=== PATIENT | male | born 1965 | race Caucasian/White ===

== ENCOUNTER 2021-04-11 08:18 | Inpatient (IN) ==
--- NOTE | 2021-03-11 14:33 | PAT Medication Instructions ---
Medication Instructions Date of Service March 11, 2021 Home Medications alfuzosin 10 mg PO HS allopurinol 100 mg PO HS alprazolam [Xanax] 2 mg PO BID diltiazem HCl 240 mg PO HS metoprolol succinate 50 mg PO HS Take morning of surgery With a small sip of water, OTHERWISE NOTHING TO EAT OR DRINK AFTER MIDNIGHT: alprazolam [Xanax] 2 mg PO BID Take evening before surgery alfuzosin 10 mg PO HS allopurinol 100 mg PO HS alprazolam [Xanax] 2 mg PO BID diltiazem HCl 240 mg PO HS metoprolol succinate 50 mg PO HS Other Notes If you have any questions please call us at [phone] or [phone] or [phone] or [phone]
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
[2021-03-12 14:06] LABS: Basophils # (auto) 0.01 K/uL (0-0.2); Basophils % (auto) 0.1 %; Eosinophils # (auto) 0.04 K/uL (0-0.5); Eosinophils % (auto) 0.5 %; Hematocrit (blood only) 43.8 % (42-52); Hemoglobin 15.9 g/dL (14.0-18.0); Immature Granulocytes # (auto) 0.04 K/uL (0.00-0.02); Immature Granulocytes % (auto) 0.5 %; Lymphocytes # (auto) 1.63 K/uL (1.2-3.4); Lymphocytes % (auto) 18.4 %; Mean Corpuscular Hemoglobin 32.5 pg (25-34); Mean Corpuscular Hgb Conc 36.3 g/dL (32-36); Mean Corpuscular Volume 89.6 fL (80-100); Mean Platelet Volume 9.5 fL (7.4-10.4); Monocytes # (auto) 0.74 K/uL (0.11-0.59); Monocytes % (auto) 8.4 %; Neutrophils % (auto) 72.1 %; Platelet Count 277 K/uL (130-400); RDW Standard Deviation 46.1 fL (36.4-46.3); Red Blood Count 4.89 M/uL (4.7-6.1); White Blood Count 8.86 K/uL (4.8-10.8)
--- NOTE | 2021-03-12 14:07 | XRay Report ---
TWO VIEW CHEST CLINICAL HISTORY: Spinal stenosis. Preoperative examination. Hypertension. FINDINGS: PA and lateral chest radiographs are compared to study dated 08/05/2012. The cardiomediastina l silhouette is unremarkable. There is mild bibasilar scarring/atelectasis. No airspace consolidation or pleural effusion is identified. An 8 mm nodular density projecting over the left lower chest is u nchanged from 2012. There is no pneumothorax. The bony thorax appears intact. Fusion hardware is note d in the lower cervical spine. Surgical clips are seen in the upper abdomen on the lateral view. IMPRESSION: 1. No active disease in the chest. 2. An 8 mm nodular density projecting over the left lower chest is unchanged dating back to 2011. ACT 112: Negative or not required by law. Electronically signed by: John Hearn M.D. 03/12/2021 2:06 PM
[2021-03-12 14:21] LABS: Partial Thromboplastin Time 26.8 Seconds (21.0-31.0); Prothrombin Time 9.8 Seconds (9.0-12.0)
[2021-03-12 14:56] LABS: Appearance Urine Clear (Clear); Bilirubin Urine Negative (Negative); Blood Urine Negative (Negative); Color Urine Dark Yellow; Glucose Urine UA Negative (Negative); Ketones Urine Negative (Negative); Leukocyte Esterase Urine Negative (Negative); Nitrite Urine Negative (Negative); Protein Urine Negative (Negative); Specific Gravity Urine 1.021 (1.000-1.030); Urobilinogen Urine Negative (Negative)
[2021-03-12 16:25] LABS: BUN Creatinine Ratio 20.3 (10-20); Calcium 9.4 mg/dl (8.5-10.1); Creatinine Clr Calc Pharmacy 116.6 ml/min; Est GFR (African American) 95.9; Est GFR (Non-African American) 82.8; Potassium 4.1 mmol/L (3.5-5.1)
[~2021-04-11 08:18] MED LIST: ACETAMINOPHEN 500 MG TAB PO SCH; CeleBREX 200 MG CAP PO SCH; GABAPENTIN 600 MG DOSE PO SCH; LR 15ML/HR IV SCH
--- NOTE | 2021-04-11 09:18 | History & Physical Bridge Note ---
Date of Service April 11, 2021 History & Physical Bridge Note I have examined the patient, reviewed the History & Physical and in the interval since the performance of the History & Physical I have noted the following changes of clinical significance: no changes noted
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
[2021-04-11] MEDS ORDERED: PROPOFOL IV EMULSION 10 MG/ML 20 ML VIAL IV ONE (09:35)
[2021-04-11] MEDS ORDERED: NEOSTIGMINE METHYLSULFATE 1 MG/ML 10ML VIAL ONE (09:35)
[2021-04-11] MEDS ORDERED: GLYCOPYRROLATE 0.2 MG/ML VIAL ONE (09:35)
[2021-04-11] MEDS ORDERED: ROCURONIUM BROMIDE 10 MG/ML 5 ML VIAL IV ONE (09:35)
[2021-04-11] MEDS ORDERED: SUCCINYLCHOLINE CHLORIDE 20 MG/ML 10 ML VIAL IV ONE (09:35)
[2021-04-11] MEDS ORDERED: MIDAZOLAM HCL 1 MG/ML 2ML VIAL ONE (09:35)
[2021-04-11] MEDS ORDERED: DEXAMETHASONE SOD INJ 4 MG/ML VIAL ONE (09:35)
[2021-04-11] MEDS ORDERED: ONDANSETRON INJ 2 MG/ML 2 ML VIAL ONE (09:35)
[2021-04-11] MEDS ORDERED: fentaNYL citrate 100 MCG/2 ML VIAL ONE ×2 (09:35→11:48)
[2021-04-11] MEDS ORDERED: HYDROmorphone INJ 2 MG/ML SYR/VIAL ONE (09:36)
[2021-04-11] MEDS ORDERED: FLOSEAL HEMOSTATIC MATRIX 10ML TOP ONE (11:19)
--- NOTE | 2021-04-11 11:23 | Operative Report ---
Post Operative Report Pre & Post Diagnosis Operation Date: 04/11/21 10:05 Pre-Op Diagnosis: Spinal Stenosis, cervical region Post-Op Diagnosis: Spinal Stenosis, cervical region I identified the patient and participated in the time-out.: Yes Procedure Operation Date: 04/11/21 10:05 Actual Procedures #1 anterior cervical discectomy with bilateral foraminotomies C6-C7. #2 anterior cervical arthrodesis C6-C7. #3 placement of 10 mm coalition filled with I factor C6-C7. Surgeon Peter Gibson, Angle Shear Operator Maddi Sims Estimated Blood Loss 10 Findings See Below The patient is 6 feet 1 inches tall weighing over 129 kg with a BMI in excess of 37. The patient's body habitus did contribute to significant technical difficulty with positioning and exposure adding at least 50% increase to the operative time. Specimens None Indications This is a 55-year-old male who presents with chronic persistent radiculopathy and is here for the above-mentioned procedure. Description of Procedure Patient was met with identified informed consent obtained. Patient was then taken to the operative suite underwent intubation placed in spine position Reji table the head Farrell head paper tester. All bony prominences well-padded eyes inspected to ensure no external pressure placed upon. This point the anterior cervical spine was prepped and draped in a sterile fashion. Sharp dissection with the assistance of Bovie cautery was performed down to expose the anterior cervical spine at C6-C7. Then performed a complete discectomy out to the uncovertebral joints bilaterally including removal of all posterior annular fibers and longitudinal ligament and bilateral foraminotomies. We had considered possible hardware removal but we had excellent exposure this level and felt that a stand-alone interbody cage would work vertically with his surface area and bone quality. Subsequently a 10 mm coalition interbody bony spacer filled with I factor was tapped in position and 20 mm screws placed to lock it in place. The incision was then copiously irrigated explored to ensure no damage to surrounding structures remaining bleeding. A 10 round ROD drain was inserted. The incision was then closed with 2 Vicryl in a fashion of 4 Monocryl for final skin closure. Steri-Strip sterile dressings placed. Patient waken taken to PACU stable condition. Please note spinal cord monitoring was utilized at the procedure no changes noted. Lastly Maddi Sims was present at the entire surgery and while the patient existing complex portions of the surgery and final skin closure. I attest to the content of the Intraoperative Record and any orders documented therein. Any exceptions are noted below.
--- NOTE | 2021-04-11 11:42 | Fluoroscopy Report ---
FL cervical 2-3V HISTORY: 55 years-old Male ACDF C6-C7 HW REMOVAL C4-C6 COMPARISON: Cervical spine radiographs 08/24/2012 TECHNIQUE: 3 spot fluoroscopic images of the cervical spine were obtained utilizing 28.4 seconds fluo roscopy time FINDINGS: Limited lateral view secondary to overlying soft tissue. Anterior plate and screw fusion with discect rick changes noted at what appears to be the C4-C6 levels. Anterior fusion hardware is also noted at w hat appears to be the C7 level. Note that the images were submitted after the surgery was completed. IMPRESSION: Fluoroscopic assistance as above. ACT 112: Negative or not required by law. The above report was generated using voice recognition software. It may contain grammatical, syntax o r spelling errors. Electronically signed by: Yony Hwang M.D. 04/11/2021 11:40 AM
[2021-04-11] MEDS ORDERED: ONDANSETRON INJ 2 MG/ML 2 ML VIAL IV PRN ×2 (11:55→13:03)
[2021-04-11] MEDS ORDERED: PROMETHAZINE HCL 12.5 MG in SODIUM CHLORIDE 0.9% 50 ML IV PRN ×2 (11:55→13:03)
[2021-04-11] MEDS ORDERED: ATROPINE SULFATE 0.1 MG/ML 10ML SYR IV PRN (11:55)
[2021-04-11] MEDS ORDERED: ePHEDrine sulfate 50 MG/ML AMP IV PRN (11:55)
[2021-04-11] MEDS ORDERED: fentaNYL citrate 100 MCG/2 ML VIAL IV PRN (11:55)
[2021-04-11] MEDS: HYDROmorphone INJ 2 MG/ML SYR/VIAL IV PRN ×3 (12:15→12:32)
--- NOTE | 2021-04-11 12:37 | Anesthesiology Progress Note ---
Date of Service April 11, 2021 Anesthesia Post Procedure Vital Signs Vital Signs: Temp Pulse Resp BP BP Pulse Ox 04/11/21 12:35 73 10 L 124/73 93 04/11/21 12:25 76 10 L 140/79 94 04/11/21 12:15 80 6 L 146/84 H 95 04/11/21 12:05 70 6 L 145/83 H 96 04/11/21 11:55 69 14 139/84 91 04/11/21 11:45 76 14 143/75 H 96 04/11/21 11:37 36.2 C L 78 14 140/73 97 04/11/21 08:37 36.7 C 79 18 131/86 98 Pain Intensity Neck: Pain Intensity: 5 Transfer of Care Handoff Completed per policy Notes Mental Status: alert / awake / arousable and participated in evaluation Patient Amnestic to Procedure: Yes Nausea / Vomiting: adequately controlled Pain: adequately controlled Airway Patency, RR, SpO2: stable & adequate BP & HR: stable & adequate Hydration State: stable & adequate Anesthetic Complications: no major complications apparent and Pt Satisfied with anesthetic care
[2021-04-11] MEDS ORDERED: FAMOTIDINE 20 MG TAB PO PRN (13:03)
[2021-04-11] MEDS ORDERED: diphenhydrAMINE Capsule 25 MG CAP PO PRN (13:03)
[2021-04-11] MEDS ORDERED: SOD PHOSPHATE/SOD BIPHOSPHATE ENEMA 132 ML BTL PR PRN (13:03)
[2021-04-11] MEDS ORDERED: HYDROmorphone INJ 1 MG/ML SYRINGE IV PRN (13:03)
[2021-04-11] MEDS ORDERED: LORazepam 0.5 MG TAB PO PRN (13:03)
[2021-04-11] MEDS ORDERED: ONDANSETRON 4 MG OD TAB PO PRN (13:03)
[2021-04-11] MEDS ORDERED: NALOXONE HCL 0.4 MG/1 ML VIAL/CARP IV PRN (13:03)
[2021-04-11] MEDS ORDERED: DO NOT ADMINISTER PNEUMOCOCCAL VACCINE PRN (13:03)
[2021-04-11] MEDS ORDERED: ACETAMINOPHEN 500 MG TAB PO PRN (13:03)
[2021-04-11] MEDS ORDERED: LORazepam 0.5 MG/1 ML VIAL IV PRN (13:03)
[2021-04-11] MEDS ORDERED: MAGNESIUM HYDROXIDE SUSP 30 ML UDC PO PRN (13:03)
[2021-04-11] MEDS ORDERED: traMADol HCL 50 MG TABLET PO PRN (13:03)
[2021-04-11] MEDS ORDERED: hydrOXYzine HCl 25 MG TAB PO PRN (13:03)
[2021-04-11] MEDS ORDERED: ALUMINUM/MAGNESIUM SUSP 30 ML UDC PO PRN (13:03)
[2021-04-11] MEDS ORDERED: ACETAMINOPHEN 1,000 MG/100 ML VIAL IV PRN (13:03)
[2021-04-11] MEDS ORDERED: METOCLOPRAMIDE HCL INJ 5 MG/ML 2 ML VIAL IV PRN (13:03)
[2021-04-11] MEDS ORDERED: DO NOT ADMINISTER FLU VACCINE PRN (13:03)
[2021-04-11] MEDS ORDERED: RACEPINEPHRINE 2.25% NEBU SOLN 0.5 ML VIAL INH PRN (13:03)
[2021-04-11] MEDS ORDERED: HYDROmorphone INJ 0.5 MG/0.5 ML SYR IV PRN (13:03)
[2021-04-11] MEDS ORDERED: dexAMETHasone 8 MG in SYRINGE 0 ML IV PRN (13:03)
[2021-04-11] MEDS: ceFAZolin 2000MG 2,000 MG/15 ML SYR IV SCH (17:31)
[2021-04-11] MEDS: LACTATED RINGER'S 1,000 ML IV SCH ×2 (19:26→21:06)
[2021-04-11] MEDS: HYDROCODONE/ACETAMOPHEN 5/325MG TAB PO PRN (20:52)
[2021-04-11] MEDS ORDERED: allopurinoL 100 MG TAB PO SCH (21:00)
[2021-04-11] MEDS ORDERED: dilTIAZem HCL 240 MG CAPCR PO SCH (21:00)
[2021-04-11] MEDS ORDERED: DOCUSATE SODIUM/SENNA 50/8.6MG TAB PO SCH (21:00)
[2021-04-11] MEDS ORDERED: METOPROLOL SUCC 50MG EXT REL TAB PO SCH (21:00)
[2021-04-11] MEDS ORDERED: ALFUZOSIN HCL 10 MG TAB PO SCH (21:00)
[2021-04-11] MEDS: ALPRAZolam 0.5 MG TABLET PO SCH (22:25)
[2021-04-12] MEDS: ceFAZolin 2000MG 2,000 MG/15 ML SYR IV SCH (02:39)
[2021-04-12] MEDS: HYDROCODONE/ACETAMOPHEN 5/325MG TAB PO PRN ×2 (02:49→11:16)
[2021-04-12] MEDS: LACTATED RINGER'S 1,000 ML IV SCH (03:49)
[2021-04-12 05:44] LABS: Hemoglobin 15.7 g/dL (14.0-18.0); Immature Granulocytes # (auto) 0.02 K/uL (0.00-0.02); Immature Granulocytes % (auto) 0.2 %; Lymphocytes # (auto) 0.93 K/uL (1.2-3.4); Lymphocytes % (auto) 8.2 %; Mean Corpuscular Hemoglobin 32.2 pg (25-34); Mean Corpuscular Hgb Conc 34.9 g/dL (32-36); Mean Corpuscular Volume 92.4 fL (80-100); Mean Platelet Volume 9.4 fL (7.4-10.4); Monocytes # (auto) 0.86 K/uL (0.11-0.59); Monocytes % (auto) 7.5 %; Neutrophils # (auto) 9.59 K/uL (1.4-6.5); Neutrophils % (auto) 84.1 %; Platelet Count 293 K/uL (130-400); RDW Coefficient of Variation 12.9 % (11.5-14.5); RDW Standard Deviation 43.5 fL (36.4-46.3); Red Blood Count 4.87 M/uL (4.7-6.1)
[2021-04-12] MEDS: POLYETHYLENE (MIRALAX) 17 GM PACK PO SCH ×2 (05:45→11:17)
[2021-04-12 06:09] LABS: Calcium 9.1 mg/dl (8.5-10.1); Creatinine Clr Calc Pharmacy 132.1 ml/min; Est GFR (African American) 111.3 ml/min; Potassium 4.3 mmol/L (3.5-5.1)
[2021-04-12] MEDS: ALPRAZolam 0.5 MG TABLET PO SCH (08:26)
--- NOTE | 2021-04-12 11:01 | Discharge Summary ---
Date of Service April 12, 2021 Admission HPI Per Admitting Provider This is a 55-year-old male who presents with chronic persistent neck and arm pain. Failing course of nonoperative care is here for surgical invention. Principal Diagnosis Cervical radiculopathy Discharge Data Allergies Allergy/AdvReac Type Severity Reaction Status Date / Time sulfamethoxazole AdvReac Mild Pancreatiti Verified 04/11/21 08:46 [From Bactrim] s trimethoprim [From Bactrim] AdvReac Mild Pancreatiti Verified 04/11/21 08:46 s atorvastatin [From Lipitor] AdvReac Unknown Myalgias Verified 04/11/21 08:46 oxybutynin AdvReac Unknown Heartburn Verified 04/11/21 08:46 oxycodone AdvReac Unknown Jumpy Verified 04/11/21 08:46 tamsulosin [From Flomax] AdvReac Unknown Reverse Verified 04/11/21 08:46 ejaculation lisinopril-hydrochloro AdvReac Unknown Palpitation Uncoded 04/11/21 08:46 s Procedures Performed Operation Date: 04/11/21 10:05 Actual Procedures p C6-C7 Anterior Cervical Discectomy and Fusion, Spinal Cord Monitoring(Bilateral) - Peter Gibson DO Ordered Studies 04/11/21 10:05 FL cervical 2-3V Routine Hospital Course (1) Cervical stenosis of spinal canal: Patient went anterior cervical discectomy and fusion tolerated so was taken to orthopedic for postoperative. Postop day 1 he was swallowing well no hoarseness. Arm symptoms markedly improved. Excellent strength testing. ROD drain decreasing probably. Subsequent discharge home. Discharge orders instructions from the chart for further review. Total Time Total Time Spent Total Time Spent (In Minutes): 20 minutes Discharge Plan Discharge Items Patient Disposition: Home - Self-Care Reason For Visit: Spinal Stenosis, cervical region Discharge Diagnosis: Cervical spinal stenosis with radiculopathy Activity: As commented below Non-emergency contact: Primary Care Provider Call non-emergency contact if: you have any medication questions Follow-up/Referrals: Christos Castellanos MD [Primary Care Provider] - Diet: Regular Addtl Attending Provider Instructions: ACTIVITY RECOMMENDATIONS: SELF CARE INSTRUCTIONS AFTER CERVICAL FUSIONS 1. No smoking. Smoking drastically decreases the chance of a solid fusion. 2. No bending, lifting more than 5 pounds, or twisting (roll like a log when turning in bed). 3. You may shower 3 days after surgery. Thoroughly dry wound. Do not soak in the tub. 4. Cervical collar: Must be worn at all times including sleeping. You may remove the brace only to bath, eat and if you are sitting in a recliner. 5. Please walk as much as you can for exercise. Gradually increase the distance that you walk as your endurance increases. SPECIAL CARE INSTRUCTIONS: VERY IMPORTANT TO READ AND REVIEW A. Do not take any anti-inflammatory medications (i.e. Indocin, Advil, Aspirin, Naprosyn, Aleve, Motrin, etc.) as these may inhibit the chance of a solid fusion. Tylenol is okay to take. B. Your surgical incision has been closed with a cosmetic suture under the skin that will dissolve in about 6 weeks. In 14 days, you can use a pair of clean scissors and cut the suture that is left outside of the skin at the ends of your incision. C. Complications are uncommon, but please contact us if you have any signs or symptoms of: 1. wound infection (fever higher than 102.5 degrees F, redness, separation of wound, drainage, or increasing pain from the incision) 2. blood clots in legs (pain, swelling, redness and warmth in legs) 3. urinary tract infection (fever higher than 102.5 degrees, burning upon urination or increased frequency of urination) 4. nerve problems (inability to walk on your toes or heels, numbness, loss of bowel or bladder control) 5. any other symptoms that concern you. D. Please call the office at if you have any concerns or questions about your operation or recovery. MANAGING PAIN AFTER SPINAL SURGERY 1. Narcotic medication is intended for short-term use and will be provided for surgical pain. Surgical pain usually lasts for a period of 4-6 weeks. Narcotic medication includes Percocet, Vicodin, Darvocet, Tylenol #3 or Lortab. 2. Longer-term pain is more appropriately treated with non-narcotic medication such as Tylenol ES. 3. Muscle spasm is not appropriately treated with narcotics. Muscle relaxers such as Soma, Flexeril or Skelaxin can be used along with Tylenol ES. 4. Remember that we all live with some "aches and pains". This is not unusual or uncommon after an injury or as we get older. 5. We will provide appropriate medication within the normal guidelines of their prescribed use. We will also be very cautious and aware of potential abuse and extended duration of patients' medication needs. 6. Please allow 2-3 days to process refills. Prescriptions will not be mailed but must be picked up at the office. FOLLOW UP VISIT: Keep your scheduled follow-up appointment. Any questions, please call the office at . Pending Studies at Discharge: No Stand-Alone Forms: My [facility] App[facility] Couple, Smoking Cessation Medications and DC Order Prescriptions: New hydrocodone-acetaminophen 5-325 mg tablet See Rx Instructions .ROUTE .COMPLEX PRN (Reason: pain) Qty: 20 RF: 0 Continued allopurinol 100 mg Tablet 100 mg PO HS RF: 0 alprazolam [Xanax] 2 mg Tablet 2 mg PO BID RF: 0 diltiazem HCl 240 mg Tablet Extended Release 24 Hr 240 mg PO HS RF: 0 alfuzosin 10 mg Tablet Extended Release 24 Hr 10 mg PO HS RF: 0 metoprolol succinate 50 mg Capsule,Sprinkle,Er 24hr 50 mg PO HS RF: 0 Discharge Orders: Discharge Order (Routine); Ordered 04/12/21 Ordered By: Peter Gibson Admission Data Admit Date/Time: 04/11/21 11:45 Attending Provider: Peter Gibson Admit Provider: Peter Gibson Primary Care Provider: Christos Castellanos I.
[2021-04-13] MEDS ORDERED: bisacodyL 10 MG SUPP PR PRN (11:24)
== END 2021-04-12 12:51 | disposition home or self-care (01) | DRG 473 ==
LOC: ASU 08:18 → PACUINP 11:45 → 3E 13:51